=== PATIENT | male | born 1960 | race Caucasian/White ===

== ENCOUNTER 2025-02-18 08:09 | Observation (INO) ==
--- NOTE | 2025-01-16 12:16 | PAT Medication Instructions ---
Medication Instructions Date of Service January 16, 2025 Home Medications aspirin 81 mg tablet,delayed release (Adult Aspirin Regimen) 81 mg PO QAM atorvastatin 80 mg tablet (Lipitor) 80 mg PO QAM carvedilol 6.25 mg tablet (Coreg) 6.25 mg PO BID cetirizine 10 mg capsule (Zyrtec) 10 mg PO QAM zolpidem 12.5 mg tablet,extended release,multiphase 12.5 mg PO HS diphenhydramine HCl 25 mg capsule (Sleep Aid (diphenhydramine)) 25 mg PO HS ibuprofen 200 mg tablet (Advil) 400 mg PO QPM lorazepam 1 mg tablet 1 mg PO HS magnesium 500 mg tablet 500 mg PO QAM turmeric root extract 500 mg tablet 1,500 mg PO QAM ASK your surgeon for instructions ibuprofen 200 mg tablet (Advil) 400 mg PO QPM ASK your prescriber and surgeon aspirin 81 mg tablet,delayed release (Adult Aspirin Regimen) 81 mg PO QAM STOP taking 2 weeks before surgery (or as soon as possible if surgery is within 2 weeks) turmeric root extract 500 mg tablet 1,500 mg PO QAM DO NOT take the morning of surgery cetirizine 10 mg capsule (Zyrtec) 10 mg PO QAM magnesium 500 mg tablet 500 mg PO QAM Take morning of surgery With a small sip of water, OTHERWISE NOTHING TO EAT OR DRINK AFTER MIDNIGHT: atorvastatin 80 mg tablet (Lipitor) 80 mg PO QAM carvedilol 6.25 mg tablet (Coreg) 6.25 mg PO BID Take evening before surgery carvedilol 6.25 mg tablet (Coreg) 6.25 mg PO BID zolpidem 12.5 mg tablet,extended release,multiphase 12.5 mg PO HS diphenhydramine HCl 25 mg capsule (Sleep Aid (diphenhydramine)) 25 mg PO HS lorazepam 1 mg tablet 1 mg PO HS Other Notes If you have any questions please call us at [phone] or [phone] or [phone] or [phone]
--- NOTE | 2025-01-28 09:32 | Anesthesiology Consultation ---
Date of Service January 28, 2025 Assessment & Plan (1) Encounter for pre-operative examination: - cardiology office visit 10/02/24: "...follow up of coronary artery disease...denies angina...follow up 12-14 months..." - Outpatient joint assessment: Patient is currently scheduled for inpatient pathway. If re-evaluated and patient/surgeon requests outpatient pathway, patient is not advised candidate for outpatient joint program from anesthesia standpoint. Chart Review Chart Review: Acceptable Risk for Surgery and Patient seen in Pre Admission Testing Teaching & Discussion Pre-Anesthesia Teaching/Discussion Notes: Instructed NPO after midnight before surgery, except medications with 15 cc of water. Medication instructions provided according to the PAT guidelines. History Surgery Operation Date: 02/18/25 10:15 Proposed Procedures p Right Total Knee Arthroplasty - Abdulaziz Osborne MD Height/Weight Height: 5 ft 8 in Weight: 135.4 kg Allergies Allergy/AdvReac Type Severity Reaction Status Date / Time No Known Allergies Allergy Verified 01/15/25 07:30 Medications Home Medications Medication Instructions Recorded Confirmed Last Taken aspirin 81 mg tablet,delayed 81 mg PO QAM 06/17/20 01/15/25 06/20/22 07:00 release (Adult Aspirin Regimen) atorvastatin 80 mg tablet (Lipitor) 80 mg PO QAM 06/17/20 01/15/25 06/21/22 06:00 carvedilol 6.25 mg tablet (Coreg) 6.25 mg PO BID 06/17/20 01/15/25 06/21/22 06:00 cetirizine 10 mg capsule (Zyrtec) 10 mg PO QAM 06/17/20 01/15/25 06/21/22 06:00 zolpidem 12.5 mg tablet,extended 12.5 mg PO HS 08/02/20 01/15/25 06/20/22 23:00 release,multiphase diphenhydramine HCl 25 mg capsule 25 mg PO HS 01/15/25 01/15/25 Unknown (Sleep Aid (diphenhydramine)) ibuprofen 200 mg tablet (Advil) 400 mg PO QPM 01/15/25 01/15/25 Unknown lorazepam 1 mg tablet 1 mg PO HS 01/15/25 01/15/25 Unknown magnesium 500 mg tablet 500 mg PO QAM 01/15/25 01/15/25 Unknown turmeric root extract 500 mg tablet 1,500 mg PO QAM 01/15/25 01/15/25 Unknown Past Medical History Medical History (Updated 01/28/25 @ 11:12 by Rhian Smyth PA-C) BPH (benign prostatic hyperplasia) CAD (coronary artery disease) s/p 2 stents LCx 2016 Depression hx High cholesterol History of anesthesia reaction states very hard to wake up after anesthesia History of [place] (myocardial infarction) 04/24/17 History of sleep disorder "has a very hard time staying asleep at night, that's why he needs the medications every night" Hypertension controlled, stable per pt Kidney stones hx Sleep apnea no device Patient denies h/o stroke, seizures, DM, blood clots/DVTs or blood transfusions. Exercise / Class Metabolic Activity II 4-5 Yardwork/Stairs/Walk up hill (denies chest discomfort or shortness of breath with one flight of stairs) Past Family History Family History Father Diabetes Other Coronary heart disease Past Surgical History Surgical History (Updated 01/28/25 @ 09:28 by Rhina Smyth PA-C) H/O: knee surgery left 2014 History of carpal tunnel surgery of right wrist History of colonoscopy (2022) x2 History of surgery on wrist left wrist de quervain's release, 08/2020 History of tonsillectomy History of urologic surgery for kidney stone Hx of right heart catheterization 04/24/17, [place], ph [facility], x2 stents; f/u [facility] and [facility], ph [facility] cardio Past Anesthesia History No Family Hx of Anesthesia Complications and Other (see above) History of PONV No Hx of PONV and No Hx of Motion Sickness Social History Smoking Status: Never smoker Do You Dip or Chew Tobacco: No (only as a teen; advised) Hx Alcohol Use: Yes alcohol intake frequency: a few times a month Hx Substance Use: No substance use type: does not use Review of Systems Patient denies chest pain, shortness of breath, dyspnea on exertion, reflux, fever, chills, cough, wheezing, or palpitations. Physical Exam Vital Signs Vitals BP 113/74 P 65 TEMP 98.2 SP02 95% on RA RESP 18 Physical Patient resting comfortably in chair in no acute distress, alert and oriented, responding appropriately throughout visit Full cervical extension range of motion without pain TMD 3 finger breadths Mallampati Score 3 Dentition: planned dental extraction prior to surgery-patient and made aware to discuss this with surgeon's office at visit later today; denies chipped or loose teeth, implants or bridges Lungs: normal respiratory effort. Good air movement, clear throughout to auscultation, no adventitious breath sounds Cardiac: regular rate and rhythm, no murmurs noted Carotid arteries: negative bruit bilat Lab Results Anesthesia Preop Results Results Anesthesia Widget: WBC 9.90 K/ul (4.8-10.8) 01/28/25 Hgb 16.0 g/dl (14.0-18.0) 01/28/25 Hct 46.4 % (42.0-52.0) 01/28/25 Plt 254 K/uL (130-400) 01/28/25 Na 137 mmol/L (136-145) 01/28/25 K 3.8 mmol/L (3.5-5.1) 01/28/25 Cl 101 mmol/L (98-107) 01/28/25 CO2 32 mmol/L (21-32) 01/28/25 BUN 22 mg/dl (6-23) 01/28/25 Creat 0.83 mg/dl (0.6-1.4) 01/28/25 Glucose Level 131 mg/dl (70-99(Fasting)) H 01/28/25 PT 10.8 Seconds (9.0-12.0) 01/28/25 PTT 29 Seconds (21-31) 01/28/25 INR 1.0 (0.9-1.1) 01/28/25 Urine Color Yellow 01/28/25 Urine Appearance Clear (Clear) 01/28/25 Urine pH 6.0 (4.5-7.5) 01/28/25 Urine Specific [place] 1.013 (1.000-1.030) 01/28/25 Urine Protein Negative (Negative) 01/28/25 Urine Glucose (UA) Negative (Negative) 01/28/25 Urine Ketones Negative (Negative) 01/28/25 Urine Blood Negative (Negative) 01/28/25 Urine Nitrite Negative (Negative) 01/28/25 Urine Bilirubin Negative (Negative) 01/28/25 Urine Urobilinogen Negative (Negative) 01/28/25 Urine Leukocyte Esterase Negative (Negative) 01/28/25 Blood Type A Positive 01/28/25 Antibody Screen NEGATIVE 01/28/25 Testing Electrocardiogram Date: 10/02/24 Sinus rhythm, rate 72 bpm Chest X-Ray Date: 01/28/25 No acute findings. Echocardiogram Date: 08/07/23 EF 60-65% Somewhat technically difficult study Mild mitral annular calcification present
--- NOTE | 2025-02-17 07:26 | History & Physical Report ---
Date of Service February 17, 2025 Assessment & Plan (1) Osteoarthritis of right knee: Plan: End-stage right knee osteoarthritis with instability and subluxation. Plan is to proceed with right total knee replacement with posterior stabilized implant. Osteoarthritis type: primary Qualified Code(s): M17.11 - Unilateral primary osteoarthritis, right knee History of Present Illness Chief Complaint: Chronic right knee pain Primary Care Provider: Vincenzo Sawyer 64-year-old male with chronic right knee pain greater than left with end-stage osteoarthritis right knee Patient denies headaches, sweats, fevers, chills, double vision, blurred vision, cough, sore throat, dysphagia, chest pain, sob, wheezing, n/v/d/c, numbness, tingling, fatigue, urinary symptoms, mood disorders. ROS positive for history of heart attack in April 2017 loud snoring sleep apnea shortness of breath walking up a hill or shoveling snow history of kidney stones. Allergies Allergy/AdvReac Type Severity Reaction Status Date / Time No Known Allergies Allergy Verified 01/15/25 07:30 Home Medications Medication Instructions Recorded Confirmed Type aspirin 81 mg tablet,delayed 81 mg PO QAM 06/17/20 01/15/25 History release (Adult Aspirin Regimen) atorvastatin 80 mg tablet (Lipitor) 80 mg PO QAM 06/17/20 01/15/25 History carvedilol 6.25 mg tablet (Coreg) 6.25 mg PO BID 06/17/20 01/15/25 History cetirizine 10 mg capsule (Zyrtec) 10 mg PO QAM 06/17/20 01/15/25 History zolpidem 12.5 mg tablet,extended 12.5 mg PO HS 08/02/20 01/15/25 History release,multiphase diphenhydramine HCl 25 mg capsule 25 mg PO HS 01/15/25 01/15/25 History (Sleep Aid (diphenhydramine)) ibuprofen 200 mg tablet (Advil) 400 mg PO QPM 01/15/25 01/15/25 History lorazepam 1 mg tablet 1 mg PO HS 01/15/25 01/15/25 History magnesium 500 mg tablet 500 mg PO QAM 01/15/25 01/15/25 History turmeric root extract 500 mg tablet 1,500 mg PO QAM 05/01/25 05/01/25 History Past Med/Surg History Problem List (Updated 02/17/25 @ 07:25 by Abdulaziz Osborne MD) Osteoarthritis of right knee Encounter for pre-operative examination History of anesthesia reaction SLOWER TO WAKE UP Medical History History of sleep disorder "has a very hard time staying asleep at night, that's why he needs the medications every night" History of anesthesia reaction states very hard to wake up after anesthesia BPH (benign prostatic hyperplasia) CAD (coronary artery disease) s/p 2 stents LCx 2016 Depression hx History of [place] (myocardial infarction) 04/24/17 Sleep apnea no device High cholesterol Kidney stones hx Hypertension controlled, stable per pt Surgical History History of carpal tunnel surgery of right wrist History of surgery on wrist left wrist de quervain's release, 08/2020 History of urologic surgery for kidney stone History of colonoscopy (2022) x2 Hx of right heart catheterization 04/24/17, [place], [facility], x2 stents; f/u [facility] and [facility], ph [facility] cardio H/O: knee surgery left 2014 History of tonsillectomy Family History Father Diabetes Other Coronary heart disease Social History Smoking Status: Never smoker Second Hand Exposure: No; Do You Dip or Chew Tobacco: No (only as a teen; advised); Hx Alcohol Use: Yes Hx Substance Use: No Preferred Language: Slovenian Communication Ability: Effective Electronic Wirer Required: No Beliefs That Will Affect Care: None marital status: Current Living Situation: Spouse Feels Safe at Home: Yes Assistive Devices: None Review of Systems All systems reviewed & are unremarkable except as noted in HPI & below Physical Exam Constitutional: WD/WN, vitals as above Respiratory: normal respiratory effort; no respiratory distress Cardiovascular: Rate/Rhythm: regular rate and regular rhythm Musculoskeletal: Right knee with a varus knee more significant than left which is also varus. He has medial joint line tenderness mild effusion on the right knee with patellofemoral crepitation and painful range of motion 0 to 125 degrees range of motion. Distal neurocirculatory exam intact. Skin: no rashes, warm and dry Neurologic: normal touch/pain/proprioception Psychiatric: A+Ox3, euthymic affect Results & Data Diagnostic Findings X-rays of the knees demonstrate [id number] in both knees with greater than 1 cm subluxation of the femur medially on the tibia on the right knee with significant joint malalignment with a varus knee and patellofemoral and medial compartment osteoarthritis.
[~2025-02-18 08:09] MED LIST: BUPIVACAINE 0.5 % 5 MG/1 ML PF 10ML VIAL ONE; MIDAZOLAM HCL 1 MG/ML 2ML VIAL ONE; ONDANSETRON INJ 2 MG/ML 2 ML VIAL ONE; PROPOFOL IV EMULSION 10 MG/ML 20 ML VIAL IV ONE; ROPIVACAINE 0.5% 5 MG/ML 30 ML VIAL ONE
[2025-02-18] MEDS: METOCLOPRAMIDE HCL 10 MG TABLET PO SCH (08:48)
[2025-02-18] MEDS: ACETAMINOPHEN 500 MG TAB PO SCH (08:48)
[2025-02-18] MEDS: FAMOTIDINE 20 MG TAB PO SCH (08:48)
[2025-02-18] MEDS: GABAPENTIN 300 MG CAP PO SCH (08:49)
[2025-02-18] MEDS: LR 60ML/HR IV SCH (08:49)
[2025-02-18] MEDS: LR 500ML BOLUS, THEN 15ML/HR IV SCH (08:49)
[2025-02-18] MEDS: CeleBREX 200 MG CAP PO SCH (08:49)
[2025-02-18] MEDS: dexAMETHasone**PF** 10 MG/ML VIAL IV SCH (08:49)
--- NOTE | 2025-02-18 11:23 | History & Physical Bridge Note ---
Date of Service February 18, 2025 History & Physical Bridge Note I have examined the patient, reviewed the History & Physical and in the interval since the performance of the History & Physical I have noted the following changes of clinical significance: no changes noted
[2025-02-18] MEDS: TRANEXAMIC ACID 1,000 MG **IV Pre-op IV SCH (11:26)
[2025-02-18] MEDS ORDERED: MIDAZOLAM HCL 1 MG/ML 2ML VIAL ONE (11:27)
[2025-02-18] MEDS: ceFAZolin 3000MG 3,000 MG/72.5 ML BAG IV SCH (11:49)
[2025-02-18] MEDS ORDERED: PROPOFOL IV EMULSION 10 MG/ML 20 ML VIAL IV ONE ×5 (12:07→14:21)
[2025-02-18] MEDS ORDERED: PHENYLEPHRINE 100MCG/ML 5ML SYR ONE (12:14)
[2025-02-18] MEDS: ROPIVACAINE 0.5% HCL/PF 246 MG, Ketorolac (*for OR use only*) 30 MG in SODIUM CHLORIDE ... INFIL SCH (12:32)
[2025-02-18] MEDS: ORTHO JOINT ANESTHETIC ONE (12:33)
[2025-02-18] MEDS: TRANEXAMIC ACID 1,000 MG **IV Intra-op IV SCH (13:51)
--- NOTE | 2025-02-18 14:25 | Post Operative Brief Note ---
Immediate Post Op Note Date of Surgery February 18, 2025 Pre & Post Diagnosis Operation Date: 02/18/25 10:15 Pre-Op Diagnosis: Right Knee Osteoarthritis with medial femur subluxation, obesity BMI 44.2 Post-Op Diagnosis: Right Knee Osteoarthritis with medial femur subluxation, old quadriceps tendon large complex partial tear, medial meniscus tear, heterotopic bone quadriceps tendon, ACL tear, obesity BMI 44.2. I identified the patient and participated in the time-out.: Yes Procedure Operation Date: 02/18/25 10:15 Actual Procedures p Right Total Knee Arthroplasty, Right Quad Tendon Repair of complex partial Right Quad Tendon Rupture(Right), lateral release, excision heterotopic bone quadriceps tendon, increased difficulty obesity BMI 44.2- Abdulaziz Osborne MD Surgeon Abdulaziz Osborne MD Employment Agency Manager Arben WOODS Estimated Blood Loss 5 Findings Consistent with Post-Op Diagnosis Specimens Bone cuts Drains Hemovac Drain Anesthesia Type MAC Spinal Regional Complications none Disposition Disposition: Recovery Room Overlapping Procedure I was present for: the critical portions of procedure. Back up surgeon: was not required during procedure.
--- NOTE | 2025-02-18 15:14 | Anesthesiology Progress Note ---
Date of Service February 18, 2025 Anesthesia Post Procedure Vital Signs Vital Signs: Temp Pulse Pulse Resp BP Pulse Ox O2 Del Method 02/18/25 15:10 36.3 C L 80 18 121/78 93 Room Air 02/18/25 15:00 84 12 116/79 92 Room Air 02/18/25 14:54 36.0 C L 78 18 111/80 95 Room Air 02/18/25 08:27 36.6 C 75 18 117/86 95 Room Air Pain Intensity Right Knee: Pain Intensity: 3 Transfer of Care Handoff Completed per policy Notes Mental Status: alert / awake / arousable and participated in evaluation Patient Amnestic to Procedure: Yes Nausea / Vomiting: adequately controlled Pain: adequately controlled Airway Patency, RR, SpO2: stable & adequate BP & HR: stable & adequate Hydration State: stable & adequate Neuraxial Anesthesia: was administered and sensory block is resolving Anesthetic Complications: no major complications apparent and Pt Satisfied with anesthetic care
--- NOTE | 2025-02-18 15:22 | XRay Report ---
XR knee RT 1 or 2V routine CLINICAL HISTORY: Right knee MRI January 26, 2025. COMPARISON: None FINDINGS: Alignment of the total right knee arthroplasty is anatomic. There is no periprosthetic fra cture or unexpected radiopaque body. Surgical drains are in place. There are skin sundeep. IMPRESSION: Expected findings following total right knee arthroplasty. ACT 112: Negative or not required by law. Electronically signed by: John Muller M.D. 02/18/2025 3:21 PM
[2025-02-18] MEDS ORDERED: MAGNESIUM HYDROXIDE SUSP 30 ML UDC PO PRN (15:51)
[2025-02-18] MEDS ORDERED: METOCLOPRAMIDE HCL INJ 5 MG/ML 2 ML VIAL IV PRN (15:51)
[2025-02-18] MEDS ORDERED: bisacodyL 10 MG SUPP PR PRN (15:51)
[2025-02-18] MEDS ORDERED: ONDANSETRON INJ 2 MG/ML 2 ML VIAL IV PRN (15:51)
[2025-02-18] MEDS ORDERED: NALOXONE HCL 0.4 MG/1 ML VIAL/CARP IV PRN (15:51)
[2025-02-18] MEDS ORDERED: TAMSULOSIN HCL 0.4 MG CAP PO PRN (15:51)
[2025-02-18] MEDS ORDERED: ALUMINUM/MAGNESIUM SUSP 30 ML UDC PO PRN (15:51)
[2025-02-18] MEDS: SODIUM CHLORIDE 0.9% 1,000 ML IV SCH (16:27)
--- NOTE | 2025-02-18 17:23 | Operative Report ---
Post Operative Report Pre & Post Diagnosis Operation Date: 02/18/25 10:15 Pre-Op Diagnosis: Right Knee Osteoarthritis, knee instability with medial femoral subluxation and obesity BMI 44.2 Post-Op Diagnosis: Right Knee Osteoarthritis, knee instability with ACL tear, root detachment posterior horn medial meniscus tear, medial femoral subluxation, complex partial quadriceps tendon tear, heterotopic ossification quadriceps tendon, chronic prepatellar bursitis, obesity BMI 44.2. I identified the patient and participated in the time-out.: Yes Procedure Operation Date: 02/18/25 10:15 Actual Procedures p Right Total Knee Arthroplasty, Right repair quadriceps tendon complex partial tear, excision heterotopic bone quadriceps tendon, prepatellar bursectomy, lateral release, application miles and Acticoat superficial wound VAC, increased difficulty BMI 44.2.- Abdulaziz Osborne MD Surgeon Abdulaziz Osborne MD Web Content Director Arben WOODS Estimated Blood Loss 5 Findings Consistent with Post-Op Diagnosis Specimens Bone cuts Drains 2 Hemovac Anesthesia Type MAC Spinal Regional Complications none Disposition Disposition: Recovery Room Indications 64-year-old male with right knee pain and instability with radiographic [id number] medial compartment with a varus knee and subluxation of the femur over 1 cm medial on the tibia. Description of Procedure Patient was taken to the operating room placed supine on the operating table and anesthetized under spinal MAC regional block anesthesia. Exam under anesthesia demonstrated positive Jono exam some pseudolaxity with some correction of the varus deformity with valgus stress. Patient has 0 through 130 degrees range of motion. A pneumatic tourniquet was placed about the moderately obese thigh of the right lower extremity. The right lower extremity was prepped and draped in usual sterile fashion. The leg was elevated exsanguinated with an Esmarch bandage and the pneumatic tourniquet was raised to 325 mm mercury. An anterior incision was made across the right knee. The skin was incised longitudinally subcutaneous flaps were elevated. Upon entering the prepatellar bursa there was substantial scarring with thick prepatellar bursal scarring. In the area of the quadriceps tendon superior medially there appeared to be some separation of the superior quadriceps tissue from the inferior quadriceps tissue that was off of the superior medial patella from some old injury. The scarred prepatellar bursa was resected. An incision was made through the medial retinaculum extending up into the mid third of the quadriceps tendon and extended down to the medial tibial tubercle. Cutting through the quad tendon revealed that there was a split between the anterior and posterior aspects of the quad tendon which appeared that there may have been a fluid collection between those 2 layers at 1 point. Inspection of the under surface layer which was lateral toward the vastus lateralis demonstrated that this undersurface had a longitudinal split that was a least 6 cm in length that started just above the patella and then extended proximally up to the musculotendinous junction area and this was split away from the lateral tendon that was attached to the vastus lateralis with a large defect in an area. Toward the VMO side proximally there was a large piece of heterotopic bone which was about 2-1/2 x 1 cm that had to be shelled out from within the quadriceps tendon there. On the medial quad tendon this was also split into anterior and posterior tendon tissue with a smooth surface between the 2 as though there may have been a fluid collection in that area as part of the injury that occurred. This was a complex partial quadriceps tear with heterotopic bone. Intra-articular findings demonstrated chronic ACL tear root attachment knee meniscus tear with calcification of the meniscus and chronic synovitis throughout the knee with grade 4 medial and lateral compartment with lateral compartment being [id number] due to subluxation and medial compartment being eburnated bone. Patella had more minor arthritic changes but tracked laterally in part due to the quadriceps injury.. The knee was exposed by excising the infrapatellar fat pad, excising the meniscal remnants and posterior cruciate ligament. Suprapatellar inflamed synovial tissue was resected as well as the fat pad over the anterior femur. The lateral synovial bands were released. Femur was exposed. The custom femoral cutting block was pinned in position. The distal femoral cutting block was applied. The distal femoral cut was made with the oscillating saw. The size 9, 4-in-1 cutting block was placed. The anterior and posterior chamfer cuts were made. The knee was extended and a subperiosteal peel lateral release was performed around the patella. The patella width was measured and width was reproduced using freehand cut technique. The 32 millimeter symmetrical patella was used. This was biased to the medial side to help patellar tracking and 3 drill holes are made for the pegs. The tibia was exposed. A custom tibial cutting block was positioned and drill holes were made for the cutting guide. Cutting guide was placed and the proximal cut was made with the oscillating saw. All osteophytes were resected. The [facility] was used to assess lig amentous balance and the ligaments were balanced in extension and flexion. No releases were required. The tibia was reexposed and measured for a size E tibial component. This was externally rotated in line with the tibial tubercle and the fixation pins were drilled. The proximal tibia was fashioned with the drill and punch. Due to the instability and the obesity a 14 x 30 mm stem was added to the implant. The size 9 posterior stabilized femoral trial was inserted. The drill for the peg holes was used as well as the notch cutting saws and the collet was placed. The trial CPS inserts were used. The 12 mm insert gave balanced ligaments through full range of motion. The patella tracked laterally so the scarred lateral retinaculum was released leaving the synovium intact and I did preserve the geniculate vessel. This corrected the patella tracking.. the trials were removed. The orthomix anesthetic cocktail was injected per protocol. The knee was then copiously irrigated with pulsatile lavage saline solution. The final components were cemented with Refobacin bone cement. The final components were Mallorie persona 9 standard PS right femoral component with a right E tibia with a 14 x 30 mm stem with a 12 mm CPS tibial polyethylene and a 32 mm symmetrical polyethylene patella. The knee was placed in full extension while the cement cured. At this time the split in the quadriceps tendon was repaired by roughening up the edges of the tendon tear and then closing that [id number] with interrupted #1 Vicryl sutures. Then interrupted horizontal mattress sutures were used to repair the inferior leaf of the quadriceps tendon to the superior leaf of the quadriceps tendon to close that interval both laterally and medially and these could also be used as ripstop sutures for the final repair. After the cement cured with the knee in full extension the Betadine soak was used per protocol. The knee joint was copiously irrigated with pulsatile lavage saline solution . 2 drains were brought out laterally and connected to a Hemovac. The quadriceps tendon and medial retinaculum were then formally closed with interrupted [id number] # 2 FiberWire sutures and the quad tendon and medial retinaculum and the proximal repair from the superior quad split down to the inferior pole patella was reinforced with a running locking 0 strata fix suture and below the level of the patella interrupted [id number] #1 Vicryl sutures were utilized in the medial retinaculum tissue. The knee was taken through a full range of motion which was 0 through 130 degrees and the repair was secure. The knee was stable in extension and flexion the subcutaneous tissues were closed with interrupted 2-0 Vicryl sutures and skin was closed with surgical sundeep.A miles and Acticoat s uperficial wound VAC was applied and the patient tolerated the procedure well. Arben WOODS my physician medical assistant participated as administrative sales assistant and was an integral part in all aspects of the procedure, he assisted in soft tissue retraction, instrument management ,leg positioning, the closure, application of the wound VAC and will participate in the postoperative care of the patient. There was increased difficulty due to his obesity which included addition of a stemmed implant and added 30 minutes to the procedure I attest to the content of the Intraoperative Record and any orders documented therein. Any exceptions are noted below.
[2025-02-18] MEDS: ASPIRIN 81 MG ECTAB PO SCH (20:27)
[2025-02-18] MEDS: carvediloL 6.25 MG TAB PO SCH (20:27)
[2025-02-18] MEDS: DOCUSATE SODIUM 100 MG CAP PO SCH (20:27)
[2025-02-18] MEDS: SENNA 8.6 MG TAB PO SCH (20:27)
[2025-02-18] MEDS: ceFAZolin 2000MG 2,000 MG/15 ML SYR IV SCH (20:28)
[2025-02-18] MEDS: TRANEXAMIC ACID / 0.7% NACL 1,000 MG/100 ML BAG IV SCH (20:34)
[2025-02-19] MEDS: diphenhydrAMINE Capsule 25 MG CAP PO SCH (00:06)
[2025-02-19] MEDS: ACETAMINOPHEN 500 MG TAB PO SCH (00:06)
[2025-02-19] MEDS: ZOLPIDEM TARTRATE 5 MG TAB PO SCH (00:06)
[2025-02-19] MEDS: LORazepam 1 MG TAB PO SCH (00:07)
[2025-02-19] MEDS: oxyCODONE HCL IR 5 MG TAB (IMMEDIATE RELEASE) PO PRN (03:19)
[2025-02-19 07:05] LABS: Hemoglobin 14.9 g/dl (14.0-18.0); Mean Corpuscular Hemoglobin 30.7 pg (25.0-34.0); Mean Corpuscular Hgb Conc 34.7 g/dL (32.0-36.0); Mean Corpuscular Volume 88.7 fL (80.0-100.0); Mean Platelet Volume 9.1 fL (9.4-12.4); Platelet Count 238 K/uL (130-400); RDW Coefficient of Variation 12.6 % (11.5-14.5); RDW Standard Deviation 41.1 fL (36.4-46.3); Red Blood Count 4.85 M/uL (4.70-6.10); White Blood Count 15.41 K/ul (4.8-10.8)
[2025-02-19 07:32] LABS: Calcium 8.5 mg/dl (8.6-10.3); Potassium 3.9 mmol/L (3.5-5.1)
[2025-02-19] MEDS: ATORVASTATIN 40 MG TAB PO SCH (08:04)
[2025-02-19] MEDS: MAGNESIUM OXIDE 400 MG TAB PO SCH (08:04)
[2025-02-19] MEDS: CETIRIZINE HCL 10 MG TABLET PO SCH (08:04)
[2025-02-19] MEDS: dexAMETHasone 10 MG in SYRINGE 0 ML IV SCH (08:05)
[2025-02-19] MEDS: MULTIVITAMIN TAB PO SCH (08:06)
--- NOTE | 2025-02-19 08:08 | Orthopedic Progress Note ---
Date of Service February 19, 2025 Assessment & Plan (1) Osteoarthritis of right knee: Plan: Postop day 1 right knee replacement and additional surgical procedure for quad tendon repair required due to old quad tendon rupture and prepatellar bursectomy for chronic scarred prepatellar bursitis. Likely more bleeding due to that. Monitor Hemovac drainage May need another day in hospital as he does not have home health set up and lives far away and would not be able to come the office to have drain removed tomorrow. Admission and Anticipated Discharge Date Admission Date: February 18, 2025 Subjective Feeling well some anterior knee soreness only no medical complaints Review of Systems Review of Systems: Noncontributory Physical Exam Musculoskeletal: Good active knee extension dressing dry and intact Hemovac still draining fair amount of fluid circulation sensorimotor exam intact. Results & Data Vital Signs (Past 12 Hours) Vital Signs Temp Pulse Resp BP Pulse Ox O2 Del Method 02/19/25 07:00 36.7 C 73 16 146/95 H 98 Room Air 02/19/25 03:00 36.4 C L 63 22 127/80 94 Room Air 02/18/25 23:18 36.6 C 68 20 136/83 96 Room Air Diagnostic Findings Hemoglobin hematocrit stable however drainage from Hemovac at 100 cc last 5 hours. (1) Osteoarthritis of right knee Osteoarthritis type: primary Qualified Code(s): M17.11 - Unilateral primary osteoarthritis, right knee
[2025-02-19] MEDS: KETOROLAC TROMETHAMINE 15 MG/ML VIAL IV PRN (10:07)
--- NOTE | 2025-02-19 14:00 | Hospitalist Consultation ---
Date of Consultation February 19, 2025 Assessment & Plan (1) S/P total knee arthroplasty: (2) History of sleep disorder: (3) Hypertension: (4) High cholesterol: (5) Depression: Plan #S/p right total knee arthroplasty Performed on 02/[address] Osborne Right knee x-ray with expected findings following right TKA on 02/18 Perioperative antibiotics, pain control, fluid management, DVT PPx per the primary team Patient/Ortho team expressed some concern regarding continued blood / drainage from Hemovac on 02/19 (POD #1) Clinically, patient denies PMH of bleeding disorders Hgb 14.9 on 02/19 Will continue to monitor; added on AM labs #Leukocytosis White blood cell count elevated at 15.41 on 02/19 Clinically, patient denies infectious symptoms; afebrile Suspect secondary to steroid use perioperatively Continue to monitor #HLD Continue atorvastatin #HTN Continue carvedilol #Sleep disorder | anxiety/depression CPAP not tolerate; no supine oxygen baseline Continue zolpidem, lorazepam Thank you for allowing us to participate in the care of this patient, please reach out with any questions or concerns. Will continue to follow. Supervising Physician Co-Signing Physician Notes Attending Attestation & Consult Note: Chart reviewed, consult care plan d/w PA Kvng Prakash. I agree with the arnold components of his consult documentation. 64yo male with h/o MOLLY, CAD/NV/stents, depression, BPH, HTN, and high cholesterol. Underwent right TKR on 02/18/[address] Abdulaziz Osborne. Hospitalist team was consulted for post-operative medical management. Labs & vital signs are stable following surgery. Patient had minimal blood loss. Chronic medical problems are stable at this time. Hospitalist team will follow. Thank you for this consult. Fabrice Masters MD History of Present Illness Reason for Consultation: Medical management Requesting Physician: Abdulaziz Osborne MD Attending Physician: Abdulaziz Osborne MD History of Present Illness Mr. Wallace is a 64-year-old gentleman with PMH of sleep apnea, NV, depression, CAD, BPH, HTN, and high cholesterol. He presented on 02/18 for a total knee arthroplasty with Dr. Osborne. Per review of operative report, EBL was listed as 5 cc, 2 Hemovac drains were placed, MAC spinal anesthesia was used, and there were no reported intraoperative complications. Patient seen POD #1. Consulted for medical management. Some concern that patient's drain was still quite full with blood. Patient denies prior history of bleeding disorders, or clotting disorders. No family history of bleeding or clotting disorders. He reports that the pain is localized to his right knee, and he rates the pain 4/10 at present, and 8/10 at worst. He had difficulty sleeping last night due to the pain. No numbness or tingling going down the right leg. No radiation of pain up the spine. Patient reports he has been ambulating, albeit with some pain, and using the urinal to go to the bathroom. He reports no prior issues with blood thinners, and reports he was not on blood thinners prior to hospitalization. In regard to sleep apnea, patient reports he does not tolerate CPAP well; no supplemental oxygen at baseline. ROS: Patient endorses right knee pain. Patient denies fever prior to hospitalization, chills, night sweats, dizziness/lightheadedness with walking, chest pain, SOB, abdominal pain, N/V/D, burning with the nation, blood in the urine or stool, or numbness/tingling going down the right leg. Allergies Allergy/AdvReac Type Severity Reaction Status Date / Time No Known Allergies Allergy Verified 02/18/25 08:22 Home Medications Medication Instructions Recorded Confirmed Type aspirin 81 mg tablet,delayed 81 mg PO QAM 06/17/20 02/18/25 History release (Adult Aspirin Regimen) atorvastatin 80 mg tablet (Lipitor) 80 mg PO QAM 06/17/20 02/18/25 History carvedilol 6.25 mg tablet (Coreg) 6.25 mg PO BID 06/17/20 02/18/25 History cetirizine 10 mg capsule (Zyrtec) 10 mg PO QAM 06/17/20 02/18/25 History zolpidem 12.5 mg tablet,extended 12.5 mg PO HS 08/02/20 02/18/25 History release,multiphase diphenhydramine HCl 25 mg capsule 25 mg PO HS 01/15/25 02/18/25 History (Sleep Aid (diphenhydramine)) lorazepam 1 mg tablet 1 mg PO HS 01/15/25 02/18/25 History magnesium 500 mg tablet 500 mg PO QAM 01/15/25 02/18/25 History turmeric root extract 500 mg tablet 1,500 mg PO QAM 01/15/25 02/18/25 History acetaminophen 500 mg tablet 1,000 mg (2 x 500 mg) PO Q8H #90 02/18/25 Rx (Tylenol Extra Strength) tabs aspirin 81 mg tablet,delayed 81 mg PO BID #60 tabs 02/18/25 Rx release cefadroxil 500 mg capsule 500 mg PO Q12H 14 days #28 caps 02/18/25 Rx celecoxib 200 mg capsule (Celebrex) 200 mg PO Q12H #60 caps 02/18/25 Rx oxycodone 5 mg tablet 5 mg PO Q4H PRN pain #20 tabs 02/18/25 Rx Patient History Medical History History of sleep disorder "has a very hard time staying asleep at night, that's why he needs the medications every night" History of anesthesia reaction states very hard to wake up after anesthesia BPH (benign prostatic hyperplasia) CAD (coronary artery disease) s/p 2 stents LCx 2016 Depression hx History of NV (myocardial infarction) 04/24/17 Sleep apnea no device High cholesterol Kidney stones hx Hypertension controlled, stable per pt Surgical History History of carpal tunnel surgery of right wrist History of surgery on wrist left wrist de quervain's release, 08/2020 History of urologic surgery for kidney stone History of colonoscopy (2022) x2 Hx of right heart catheterization 04/24/17, NV, ph [facility], x2 stents; f/u [facility], ph [facility] cardio H/O: knee surgery left 2014 History of tonsillectomy Family History Father Diabetes Other Coronary heart disease Social History Smoking Status: Never smoker Second Hand Exposure: No; Do You Dip or Chew Tobacco: No (only as a teen; advised); Tobacco Cessation Education Requested by Patient: No Hx Alcohol Use: Yes Hx Substance Use: No Preferred Language: Serbian Communication Ability: Effective Mud Grinder Required: No Beliefs That Will Affect Care: None marital status: Current Living Situation: Spouse Other Information That Helps Us Care for You: No Feels Safe at Home: Yes Safety Concerns: Feels Safe At This Time Assistive Devices: Walker Review of Systems 2 Review of Systems: See HPI above Physical Exam Physical Exam: General: no acute distress; pleasant affect; non-toxic appearing; cooperative; SpO2 94% on RA HEENT: normocephalic, atraumatic; PERRLA; vision and hearing grossly intact Neck: supple; trachea midline Skin: warm, dry without signs of tenting; no cyanosis; no rashes, bruising, lesions, or erythema noted CV: chest wall NTP; RRR; S1/S2 normal; no murmurs/rubs/gallops; pulses intact and symmetric at radial, DP, and PT Lungs: no acute respiratory distress; symmetrical chest wall expansion; clear breath sounds across all lung mir w/o adventitious sounds; no wheezing ABD: Soft, NTP; BS present; no rebound/guarding; no distention LEs: Teds and SCDs in place; patient demonstrates ability to wiggle toes and plantar/dorsiflex against resistance without unilateral deficits; N/V intact in the feet assessed at DP/PT pulses; patient demonstrates ability to stand and transfer the chair without assistance; patient's Hemovac drain on right knee is filled with sanguinous fluid MSK: no tics or fasciculations; no edema noted in the LEs b/l, nonerythematous (note: Teds/SCDs in place) Neuro: A&Ox3; normal mood and affect; fluent speech; no focal deficits; patient report sensation intact and symmetric in the lower extremity bilaterally assessed via light touch Results & Data Results & Data Vital Signs (Past 12 Hours) Vital Signs Temp Pulse Resp BP Pulse Ox Pulse Ox O2 Del Method 02/19/25 13:05 96 02/19/25 11:00 36.6 C 61 16 145/83 H 95 Room Air 02/19/25 07:00 36.7 C 73 16 146/95 H 98 Room Air 02/19/25 03:00 36.4 C L 63 22 127/80 94 Room Air O2 Flow Rate 02/19/25 13:05 0 02/19/25 11:00 02/19/25 07:00 02/19/25 03:00 Laboratory Results Abnormal lab results 02/19/25 Range/Units 06:45 WBC 15.41 H (4.8-10.8) K/ul MPV 9.1 L (9.4-12.4) fL BUN/Creatinine Ratio 25.0 H (10-20) Glucose 130 H (70-99(Fasting)) mg/dl Calcium 8.5 L (8.6-10.3) mg/dl Diagnostic Findings Knee X-Ray 02/18/25 15:01 XR knee RT 1 or 2V routine CLINICAL HISTORY: Right knee MRI January 26, 2025. COMPARISON: None FINDINGS: Alignment of the total right knee arthroplasty is anatomic. There is no periprosthetic fracture or unexpected radiopaque body. Surgical drains are in place. There are skin sundeep. IMPRESSION: Expected findings following total right knee arthroplasty. ACT 112: Negative or not required by law. Electronically signed by: John Muller M.D. 02/18/2025 3:21 PM PG Care Time/CCT Total # of Minutes Spent Total Time Spent with Patient: Total time spent is greater than 50% in coordination of care (as documented) at patient's floor/unit and/or counseling patient: Coding [place] [address] IN/OBS CONSULT LVL 3,45M Patient Type Established Medical Decision Making Moderate Complexity Diagnoses S/P total knee arthroplasty Z96.659 History of sleep disorder Z86.69 Hypertension I10 High cholesterol E78.00 Depression F32.9
[2025-02-19 20:20] VITALS: RESP 18
[2025-02-20] MEDS: HYDROmorphone INJ 0.5 MG/0.5 ML SYR IV PRN (04:23)
[2025-02-20] MEDS: hydrALAZINE HCL 25 MG TAB PO STA (04:35)
[2025-02-20 06:43] LABS: Basophils # (auto) 0.04 K/uL (0.00-0.20); Basophils % (auto) 0.3 %; Eosinophils # (auto) 0.11 K/uL (0.00-0.50); Eosinophils % (auto) 0.8 %; Hematocrit (blood only) 42.1 % (42.0-52.0); Hemoglobin 14.5 g/dl (14.0-18.0); Immature Granulocytes # (auto) 0.08 K/uL (0.01-0.20); Immature Granulocytes % (auto) 0.6 %; Mean Corpuscular Hemoglobin 30.9 pg (25.0-34.0); Mean Corpuscular Hgb Conc 34.4 g/dL (32.0-36.0); Mean Corpuscular Volume 89.8 fL (80.0-100.0); Mean Platelet Volume 9.4 fL (9.4-12.4); Monocytes # (auto) 2.04 K/uL (0.11-0.59); Monocytes % (auto) 14.2 %; Neutrophils # (auto) 9.79 K/uL (1.40-6.50); Neutrophils % (auto) 68.1 %; Platelet Count 232 K/uL (130-400); RDW Coefficient of Variation 12.8 % (11.5-14.5); RDW Standard Deviation 41.7 fL (36.4-46.3); Red Blood Count 4.69 M/uL (4.70-6.10); White Blood Count 14.36 K/ul (4.8-10.8)
[2025-02-20 06:59] LABS: BUN Creatinine Ratio 24.1 (10-20); Calcium 8.4 mg/dl (8.6-10.3); Creatinine Clr Calc Pharmacy 112.3 ml/min; Potassium 3.9 mmol/L (3.5-5.1)
[2025-02-20 07:59] VITALS: BP 135/96; PULSE 90; TEMP 97.7; O2SAT 96
--- NOTE | 2025-02-20 09:17 | Hospitalist Progress Note ---
"Date of Service February 20, 2025 Assessment & Plan (1) S/P total knee arthroplasty: (2) History of sleep disorder: (3) Hypertension: (4) High cholesterol: (5) Depression: Plan #S/p right total knee arthroplasty Performed on 02/[address] Osborne Right knee x-ray with expected findings following right TKA on 02/18 Perioperative antibiotics, pain control, fluid management, DVT PPx per the primary team Patient/Ortho team expressed some concern regarding continued blood / drainage from Hemovac on 02/19 (POD #1) Clinically, patient denies PMH of bleeding disorders Hgb trend 14.9 -> 14.5; stable Aspirin to be continued at discretion of primary team #Leukocytosis Leukocytosis trend 15.41 -> 14.36 Clinically, patient denies infectious symptoms (no cough, trouble breathing, burning urination, or rashes); afebrile Suspect secondary to steroid use perioperatively #HLD Continue atorvastatin #HTN Continue carvedilol #Sleep disorder | anxiety/depression CPAP not tolerate; no supplemental oxygen baseline Continue zolpidem, lorazepam HS From a medical standpoint, patient appears stable. Hgb trend has been stable. Vital stable the morning of 02/20. Continue current medications. Will sign off at this time. Thank you for allowing us to participate in the care of this patient, please reach out with any questions or concerns. Admission and Anticipated Discharge Date Admission Date: February 19, 2025 Supervising Physician Co-Signing Physician Notes Attending Attestation - Chart reviewed, care plan d/w CHUCK Prakash. I agree with the arnold components of his consult documentation. Fabrice Masters MD Subjective Mr. Wallace reports that he feels good this morning. He had some difficulty falling asleep last night, but did fall asleep around 3 AM and was able to stay asleep. He is sitting at the side of the bed eating breakfast this morning without any new complaints. He reports the pain in his right knee is a 4/10 this morning. No radiation. He is able to ambulate/transfer to the chair without difficulty. No urinary complaints or changes in urinary/bowel habits. No setbacks overnight such as fevers, chills, night sweats. No chest pain or shortness of breath. He is glad to report that the drain from his right knee looks better this morning. He is eager to return home today if possible. ROS: Patient reports difficulty sleeping, cold intolerance, and aching right knee pain this morning. Patient denies fevers, chills, night sweats, chest pain, chest palpitations, SOB, cough, abdominal pain, N/V/D, changes in urinary bowel habits, or numbness or tingling going on the right leg. Review of Systems Review of Systems: See HPI above Physical Exam Physical Exam: General: no acute distress; sitting upright on the side of the bed; pleasant affect; non-toxic appearing; cooperative; SpO2 96% on RA HEENT: normocephalic, atraumatic; PERRLA; vision and hearing grossly intact Neck: supple; trachea midline Skin: warm, dry without signs of tenting; no cyanosis; no rashes, bruising, lesions, or erythema noted CV: chest wall NTP; RRR; S1/S2 normal; no murmurs/rubs/gallops; pulses intact and symmetric at radial, DP, and PT Lungs: no acute respiratory distress; symmetrical chest wall expansion; clear breath sounds across all lung mir w/o adventitious sounds; no wheezing ABD: Soft, NTP; BS present; no rebound/guarding; no distention LEs: Teds and SCDs in place; patient demonstrates ability to wiggle toes and plantar/dorsiflex against resistance without unilateral deficits; N/V intact in the feet assessed at DP/PT pulses MSK: no tics or fasciculations; no edema noted in the LEs b/l, nonerythematous (note: Teds/SCDs in place) Neuro: A&Ox3; normal mood and affect; fluent speech; no focal deficits; patient report sensation intact and symmetric in the lower extremity bilaterally assessed via light touch Results & Data Results & Data Vital Signs (Past 12 Hours) Vital Signs Temp Pulse Resp BP Pulse Ox O2 Del Method 02/20/25 07:58 36.5 C 90 18 135/96 96 Room Air 02/20/25 03:45 36.6 C 73 18 173/125 H 97 Room Air 02/19/25 23:00 36.4 C L 86 18 159/108 H 97 Room Air 02/19/25 22:54 Room Air PG Care Time/CCT Total # of Minutes Spent Total Time Spent with Patient: Total time spent is greater than 50% in coordination of care (as documented) at patient's floor/unit and/or counseling patient: Coding [place] [address] SUB INP/OBS CARE 10/11MIN Patient Type Established Medical Decision Making Low Complexity Diagnoses S/P total knee arthroplasty Z96.659 History of sleep disorder Z86.69 Hypertension I10 High cholesterol E78.00 Depression F32.9"
--- NOTE | 2025-02-20 09:28 | Orthopedic Progress Note ---
Date of Service February 20, 2025 Assessment & Plan (1) Osteoarthritis of right knee: Plan: Postop day 2 right knee replacement and additional surgical procedure for quad tendon repair required due to old quad tendon rupture and prepatellar bursectomy for chronic scarred prepatellar bursitis. PT/OT. DVT prophylaxisaspirin 81 mg twice daily, CAROL stockings x 30 days Pain managementas written The Hemovac will be removed today prior to discharge. Discharge planningdischarge home today with plan for outpatient physical therapy. Admission and Anticipated Discharge Date Admission Date: February 19, 2025 Subjective Patient is doing well today. Pain is controlled in the right knee. He feels that the drainage has decreased in the Hemovac. He is hoping to go home today. Physical Exam Constitutional: WD/WN, vitals as above no acute distress (Sitting at the side of the bed, comfortable.) Musculoskeletal: Knee: + surgical incision (Right knee ISAIAH dressing is C/D/I.) and + surgical drain present (110 cc emptied at 0500 this morning); knee normal to inspection, no skin erythema and no ecchymosis Skin: no rashes, warm and dry Trauma: no evidence of skin trauma Neurologic: normal touch/pain/proprioception Psychiatric: A+Ox3, euthymic affect Results & Data Vital Signs (Past 12 Hours) Vital Signs Temp Pulse Resp BP Pulse Ox O2 Del Method 02/20/25 07:58 36.5 C 90 18 135/96 96 Room Air 02/20/25 03:45 36.6 C 73 18 173/125 H 97 Room Air 02/19/25 23:00 36.4 C L 86 18 159/108 H 97 Room Air 02/19/25 22:54 Room Air (1) Osteoarthritis of right knee Osteoarthritis type: primary Qualified Code(s): M17.11 - Unilateral primary osteoarthritis, right knee
--- NOTE | 2025-02-23 13:28 | Discharge Summary ---
Date of Service February 23, 2025 Admission HPI Per Admitting Provider 64-year-old male with chronic right knee pain greater than left with end-stage osteoarthritis right knee Patient denies headaches, sweats, fevers, chills, double vision, blurred vision, cough, sore throat, dysphagia, chest pain, sob, wheezing, n/v/d/c, numbness, tingling, fatigue, urinary symptoms, mood disorders. ROS positive for history of heart attack in April 2017 loud snoring sleep apnea shortness of breath walking up a hill or shoveling snow history of kidney stones. Principal Diagnosis right knee osteoarthritis Discharge Exam Constitutional WD/WN, vitals as above no acute distress (Sitting at the side of the bed, comfortable.) Musculoskeletal Knee: + surgical incision (Right knee ISAIAH dressing is C/D/I.) and + surgical drain present (110 cc emptied at 0500 this morning); knee normal to inspection, no skin erythema and no ecchymosis Skin no rashes, warm and dry Trauma: no evidence of skin trauma Neurologic normal touch/pain/proprioception Psychiatric A+Ox3, euthymic affect Discharge Data Allergies Allergy/AdvReac Type Severity Reaction Status Date / Time No Known Allergies Allergy Verified 02/18/25 08:22 Consultations 02/13/25 10:43 Consult Hospitalist Routine Procedures Performed Operation Date: 02/18/25 10:15 Actual Procedures p Right Total Knee Arthroplasty, (Right) - Abdulaziz Osborne MD s Right Quad Tendon Repair, Replacement Partial Right Quad Tendon Rupture(Right) - Abdulaziz Osborne MD Ordered Studies 02/17/25 05:00 US - OR guided needle placemen Routine 02/18/25 13:57 US - OR guided needle placemen Routine Hospital Course (1) Osteoarthritis of right knee: Postop day 2 right knee replacement and additional surgical procedure for quad tendon repair required due to old quad tendon rupture and prepatellar bursectomy for chronic scarred prepatellar bursitis. PT/OT. DVT prophylaxisaspirin 81 mg twice daily, CAROL stockings x 30 days Pain managementas written The Hemovac will be removed today prior to discharge. Discharge planningdischarge home today with plan for outpatient physical therapy. Total Time Total Time Spent Total Time Spent (In Minutes): 30 Discharge Plan Discharge Items Patient Disposition: Home - Self-Care Reason For Visit: Right Knee Degenerative Joint Disease Discharge Diagnosis: Right knee osteoarthritis Activity: Per Instructions section Non-emergency contact: Primary Care Provider and Surgeon Call non-emergency contact if: your pain is not controlled, your pain is worsening and your temperature is above 101 Follow-up/Referrals: Vincenzo Sawyer M.D. [Primary Care Provider] - Diet: Regular Addtl Attending Provider Instructions: ACTIVITY RECOMMENDATIONS: SELF CARE INSTRUCTIONS AFTER TOTAL KNEE REPLACEMENT A. You may need to continue a physical therapy program after discharge from the hospital. There are several options available to you. Your doctor will assist you in selecting the best one for you. 1. An out-patient facility 3 times a week for therapy. 2. Home therapy for 1 to 2 weeks with outpatient therapy to follow. 3. Continue working on all exercises taught by physical therapy three times a day for 20 minutes on non-therapy days. Your goals should be to increase the bending of your knee to 90 degrees and beyond and to fully straighten your knee. Ice and elevate knee after exercise. B. Weight as tolerated with a walker or as instructed by your physician. C. It is okay to shower if minimal to no drainage from incision. No Baths. Do not soak wound. D. Make walking a part of your daily routine. Be up as much as comfortable with rest periods throughout the day. Rest with leg elevation is very important. Use the ice wrap frequently for the first 3-4 weeks. E. There are no restrictions on activities. You may ride in a car, shop, participate in fisher trawl line and all social activities. F. Wear the long elastic stockings (CAROL hose) 20 hours a day for one month after surgery. They can be removed several times a day for laundering and when showering. G. You may return to previous diet. H. ISAIAH dressing: You have a ISAIAH dressing on your surgical wound. It will remain in place for 7 days from surgery. You will be provided with a booklet with the do's and don'ts with the dressing in place. After 7 days, the dressing may be removed. If there is drainage from the surgical incision, you may cover the wound with dry dressings SPECIAL CARE INSTRUCTIONS: VERY IMPORTANT TO READ AND REVIEW A. Take Coumadin, Xarelto, Aspirin or Lovenox (blood thinning medications) as directed by your doctor. If on Coumadin, have a pro-time (blood test) drawn according to your doctor's instructions. This will tell the doctor how well the Coumadin is thinning your blood. B. There are a few signs you need to watch for after you are home. Call [facility] if you notice any of the followin. Increased severe knee pain. Some pain is expected especially when you exercise. 2. Increased swelling in your leg or knee; pain or swelling of the calf muscle in either lower leg. 3. Any redness or fluid drainage from the incision. 4. Shortness of breath or chest pain. 5. A Temperature of 101 degrees F or greater. C. Please call [facility] at if you have any concerns or questions about your operation or recovery. The doctor or his nurse will return your call promptly. D. You must take antibiotics before dental work, bladder, bowel or other surgery. Your doctor will provide you with a permanent care to carry describing this precaution. FOLLOW UP VISIT: If appointment is not already scheduled: Please call [facility] to make a follow-up appointment for 2 weeks after your surgery at . Pending Studies at Discharge: No Stand-Alone Forms: My [facility], Pain - Opioid Pain Management, Smoking Cessation Medications and DC Order Prescriptions: New celecoxib [Celebrex] 200 mg capsule 200 mg PO Q12H Qty: 60 0RF aspirin 81 mg tablet,delayed release (DR/EC) 81 mg PO BID Qty: 60 0RF cefadroxil 500 mg capsule 500 mg PO Q12H 14 Days Qty: 28 0RF oxycodone 5 mg tablet 5 mg PO Q4H PRN (Reason: pain) Qty: 20 0RF acetaminophen [Tylenol Extra Strength] 500 mg tablet 1,000 mg PO Q8H Qty: 90 0RF Continued atorvastatin [Lipitor] 80 mg tablet 80 mg PO QAM carvedilol [Coreg] 6.25 mg tablet 6.25 mg PO BID Rx Instructions: must administer with a meal/food Zyrtec 10 mg capsule 10 mg PO QAM zolpidem 12.5 mg Tablet,Ext Release Multiphase 12.5 mg PO HS magnesium 500 mg Tablet 500 mg PO QAM diphenhydramine HCl [Sleep Aid (diphenhydramine)] 25 mg Capsule 25 mg PO HS lorazepam 1 mg Tablet 1 mg PO HS turmeric root extract 500 mg Tablet 1,500 mg PO QAM Held aspirin [Adult Aspirin Regimen] 81 mg tablet,delayed release (DR/EC) 81 mg PO QAM Hold Instructions: Resume on 03/20/25. Discontinued ibuprofen [Advil] 200 mg Tablet 400 mg PO QPM Patient Comments: 1200 every day Discharge Orders: Discharge Order (Routine); Ordered 02/20/25 Ordered By: Arben Hernadez/Other Patient Handouts: DVT Post Op Prevention Admission Data Admit Date/Time: 02/19/25 11:17 Attending Provider: Abdulaziz Osborne Admit Provider: Abdulaziz Osborne Primary Care Provider: Vincenzo Sawyer Other Providers: Fabrice Masters Other Interventions: Discharge Summary Assessment (RN) Last Done: 02/20/25 10:05
== END 2025-02-20 11:24 | disposition home or self-care (01) | DRG 470 ==
LOC: 3E 08:09 → ASU 08:09